=== PATIENT | female | born 1985 | race Caucasian/White ===

== ENCOUNTER → 2018-12-08 | Outpatient (CLI) | payer OTHER | LOC: COL.RAD 10:00 | DX: Z31.41 Encounter for fertility testing (principal) | CPT/HCPCS: Q9967 ==

== ENCOUNTER → 2021-03-30 | Outpatient (CLI) | payer OTHER | LOC: DIA.ED 08:44 | DX: O24.419 Gestational diabetes mellitus in pregnancy, unspecified control (principal) | CPT/HCPCS: G0108 ==

== ENCOUNTER 2021-05-05 10:14 | Inpatient (IN) | payer OTHER ==
[2021-05-05] VITALS (25 sets, daily range): BP systolic 112–144; BP diastolic 64–91; PULSE 75–100; TEMP 97.5–98.2
[~2021-05-05] VITALS: Ht 160 cm; Wt 84.1 kg
--- NOTE | 2021-05-05 10:25 | NUR ---
Presents to labor and delivery. Sent over by the office for monitoring for DEVIN 4 out of nine. heart monitor on. heart rate 140 with accelerations and no decelerations. Denies feeling any contractions.
[2021-05-05] MEDS ORDERED: PRENATAL TABLET PO (11:17)
[2021-05-05] MEDS ORDERED: CALCIUM-500 5001 CTB PO (11:22)
[2021-05-05] MEDS ORDERED: MASON NATURAL2000 IU PO (11:23)
[2021-05-05] MEDS ORDERED: TIROSINT75 MC1 PO (11:25)
[2021-05-05] MEDS ORDERED: NATURAL IRON65 MG (11:25)
--- NOTE | 2021-05-05 14:00 | NUR ---
1400-Assumed care of patient. 1405-Dr. oGldberg to patient room. SVE by MD "closed and 50% effaced" per MD. MD discusses options with patient and gives order to admit and start PO cytotec induction. 1435-INT to right hand, blood collected and sent to lab per orders. Consents reviewed and signed. 1448-cytotec given, see EMAR
--- NOTE | 2021-05-05 14:55 | NUR ---
Presents to ob floor via bed with two surgery nurses. Patient alert, oriented to room. at bedside. Has left mastectomy with keisha drain intact with small amount of red color drainage. Nibp on.
[2021-05-05 16:34] LABS: BASO % 0.2 % (0.0-2.0); EOS # 0.1 K/mm3 (0.0-0.7); EOS % 1.4 % (0.0-4.0); GRAN # 6.7 K/mm3 (1.4-6.5); GRAN % 74.6 % (42.2-75.2); HEMOGLOBIN 12.1 g/dl (12.5-16.0); LYMPH # 1.5 K/mm3 (1.2-3.4); LYMPH % 16.6 % (20.0-51.0); MEAN CELL VOLUME 89 fl (80.0-100.0); MEAN CORPUSCULAR HEMOGLOBIN 30 pg (27-31); MEAN CORPUSCULAR HGB CONC 34 g/dl (33.0-37.0); MEAN PLATELET VOLUME 10.5 fl (7.4-10.4); MONO # 0.6 K/mm3 (0.1-0.6); MONO % 6.6 % (1.7-9.3); PLATELET COUNT 187 K/mm3 (130-400); REDCELL DISTRIBUTION WIDTH-CV 13.5 % (11.5-14.5)
[2021-05-05 16:35] LABS: HEMATOCRIT 35.5 % (37.0-47.0)
[2021-05-06] VITALS (89 sets, daily range): BP systolic 97–159; BP diastolic 52–93; PULSE 64–127; TEMP 97.8–98.4
--- NOTE | 2021-05-06 08:08 | NUR ---
Subtle late decel noted. Pt repositoned right lateral. Ctx tracing intermittenly due to maternal position. RN at bedside adjusting EFM. No further decels noted.
--- NOTE | 2021-05-06 09:10 | NUR ---
PATIENT REMOVED FROM MONITORING AT 0845 FOR AMBULATION AND BRP. PATIENT PLACED ON MONITOR AT 0910. CARE ONGOING.
--- NOTE | 2021-05-06 11:02 | NUR ---
MD MALOU AT BEDSIDE FOR PLAN OF CARE DISCUSSION. ULTRASOUND AT BEDSIDE FOR EXAM. EFM REMOVED FOR US. PATIENT AMBULATING AFTER US COMPLETE. BRP. CARE ONGOING.
--- NOTE | 2021-05-06 12:05 | NUR ---
MD MALOU AT BEDSIDE WELL KAYLEIGH AND RN. CARA REMOVED FOR . CARE ONGOING.
--- NOTE | 2021-05-06 14:18 | NUR ---
PATIENT REMOVED FROM [facility] FOR BRP. CARE ONGOING.
--- NOTE | 2021-05-06 15:30 | NUR ---
PATIENT POSITIONED FOR RIGHT LATERAL SIDE LIE HIP RELEASE. CARE ONGOING.
--- NOTE | 2021-05-06 15:33 | NUR ---
PATIENT POSITIONED FOR LEFT LATERAL SIDE LIE HIP RELEASE. CARE ONGOING.
--- NOTE | 2021-05-06 18:05 | NUR ---
MD MALOU AT BEDSIDE AT 1720. CARE ONGOING.
--- NOTE | 2021-05-06 20:45 | NUR ---
2044-Difficulty tracing ctx due to maternal position.
--- NOTE | 2021-05-06 21:30 | NUR ---
2129-Difficulty tracing ctx due to maternal position. This RN at bedside adjusting TOCO.
[2021-05-07] VITALS (85 sets, daily range): BP systolic 104–1378; BP diastolic 55–97; PULSE 64–117; TEMP 97.3–98.9
--- NOTE | 2021-05-07 02:28 | NUR ---
0228-Patient reports she felt a gush of fluid, not sure if urine or water. This RN to bedside to assess. 0230-Amniotest positive for SROM. Clear fluid noted. SVE -/-2. Patient repositioned to [facility]. Plan of care discussed.
--- NOTE | 2021-05-07 06:40 | NUR ---
Pitocin off at this time.
--- NOTE | 2021-05-07 07:38 | NUR ---
PATIENT OFF MONITOR FOR AMBULATION AND BRP. CARE ONGOING.
--- NOTE | 2021-05-07 07:39 | NUR ---
PATIENT REMOVED FROM [facility] FOR AMBULATION AND BRP. CARE ONGOING.
--- NOTE | 2021-05-07 08:30 | NUR ---
MD MALOU AT BEDSIDE. PATIENT POSITIONED IN BED FOR SVE. SVE PERFORMED BY - /-. PLAN OF CARE DISCUSSED WITH PATIENT AND . CARE ONGOING.
--- NOTE | 2021-05-07 09:02 | NUR ---
MD MALOU AT BEDSIDE. PATIENT POSITIONED IN BED FOR EXAM. SVE COMPLETED BY MD - /-. PLAN OF CARE DISCUSSED WITH PATIENT AND . CARE ONGOING.
--- NOTE | 2021-05-07 10:45 | NUR ---
Patient requesting epidural and plan of care discussed/Questions answered. 1047: [facility] called and notified.
--- NOTE | 2021-05-07 11:15 | NUR ---
PATIENT SITTING UP FOR EPIDURAL. Olivia COLBERT CRNA AT BEDSIDE. 1124 SINGLE SHOT GIVEN. PATIENT TOLERATES WELL. 1130 PATIENT REPOSITIONED. SAFETY INSTRUCTIONS DISCUSSED. CARE ONGOING.
--- NOTE | 2021-05-07 12:08 | NUR ---
MD MALOU AT BEDSIDE. SVE PERFORMED BY - /-. PATIENT TOLERATED EXAM WELL. PLAN OF CARE DISCUSSED WITH PATIENT AND . EPIDURAL AND PITOCIN GTT CONTINUES. SINCLAIR CATHETER PLACED BY RN. CARE ONGOING.
--- NOTE | 2021-05-07 16:35 | NUR ---
MD MALOU AT BEDSIDE. SVE PERFORMED BY . PATIENT /-2. PLAN OF CARE DISCUSSED WITH PATIENT AND . CARE ONGOING.
--- NOTE | 2021-05-07 18:20 | NUR ---
1819- at bedside assessing patient and FHR. SVE /-2. Physician discusses c/s with patient and spouse. Both verbalize understanding and agree with plan. 1825-Pitocin stopped and turned off at this time per physician. Patient's incision area is prepped and cleaned for c/s. Repositioned in bed. Plan of care discussed.
--- NOTE | 2021-05-07 18:26 | NUR ---
MD MALOU AT BEDSIDE FOR EXAM. SVE /-2. PLAN FOR C SECTION DISCUSSED WITH PATIENT AND . PITOCIN GTT STOPPED. CARE ONGOING.
--- NOTE | 2021-05-07 19:02 | NUR ---
1901-Late decel noted on FHR strip. Patient reports feeling nausous and chilly. This RN at bedside assessing. Patient repositioned to LL. 1905- at bedside assessing patient and FHR. Late decel noted on FHR strip. Patient is positioned to RL. SVE per physician, no change. 1909-New IV sited started to LH by VANDANA Brown. IV to RH d/c due to increased puffiness. 1913-Patient reports feeling very cold and nauseous. BP 67/41. Epinephrine given by JENNY Becerril. See EMAR. 1919-Patient's BP has increased back up, 88/51. 1922-BP 148/66. Patient reports she is feeling better, nausea has subsided. LR bolus infusing. 1944-Patient and spouse prepped to go to OR.
[2021-05-08] VITALS: BP 137/75; PULSE 79
--- NOTE | 2021-05-08 | NUR ---
0000 IV TO INT. EPID CATH REMOVED. PERICARE DONE AND PADS CHANGED. BINDER ON. REGULAR DIET TAKEN AND NEAL WELL.
[2021-05-08 02:30] VITALS: BP 124/68; PULSE 98; TEMP 98.6
[2021-05-08 07:50] VITALS: BP 118/62; PULSE 95; TEMP 98.2
[2021-05-08] MEDS ORDERED: PERCOCET 325 MG1 TA2 PO (08:35)
[2021-05-08] MEDS ORDERED: IBU800 M1 PO (08:35)
[2021-05-08 09:05] LABS: HEMOGLOBIN 11.2 g/dl (12.5-16.0); MEAN CELL VOLUME 89 fl (80.0-100.0); MEAN CORPUSCULAR HEMOGLOBIN 30 pg (27-31); MEAN CORPUSCULAR HGB CONC 34 g/dl (33.0-37.0); MEAN PLATELET VOLUME 9.9 fl (7.4-10.4); PLATELET COUNT 171 K/mm3 (130-400); RED BLOOD COUNT 3.68 M/mm3 (4.10-5.30); REDCELL DISTRIBUTION WIDTH-CV 13.7 % (11.5-14.5)
[2021-05-08 09:16] LABS: HEMATOCRIT 32.6 % (37.0-47.0)
[2021-05-08 12:15] VITALS: BP 104/59; PULSE 96; TEMP 98.1
[2021-05-08 16:37] VITALS: BP 98/61; PULSE 96; TEMP 97.6
[2021-05-08 19:15] VITALS: BP 107/71; PULSE 88; TEMP 97.7
[2021-05-09 08:15] VITALS: BP 129/70; PULSE 79; TEMP 97.4
--- NOTE | 2021-05-09 15:20 | NUR ---
1500-Reviewed discharge instructions with patient. Denies questions. Updated on 2 and 6 week appointments. 1520-Ambulatory off unit with spouse and .
== END 2021-05-09 15:20 | disposition home or self-care (01) | DRG 788 ==
LOC: LDRO 10:14 → LDR 10:25 → LDRO 14:21 → LDR 14:22 → OB 14:22
PROVIDERS: Obstetrics & Gynecology; ADMIT Student in an Organized Health Care Education/Training Program
PROC: 10D00Z1 Extraction of Products of Conception, Low, Open Approach (ICD-10-PCS; principal; 2021-05-07)
PROC: 3E0P7VZ Introduction of Hormone into Female Reproductive, Via Natural or Artificial Opening (ICD-10-PCS; 2021-05-07)
PROC: 3E033VJ Introduction of Other Hormone into Peripheral Vein, Percutaneous Approach (ICD-10-PCS; 2021-05-07)
DX: O41.03X0 Oligohydramnios, third trimester, not applicable or unspecified (principal); O24.429 Gestational diabetes mellitus in childbirth, unspecified control; O99.02 Anemia complicating childbirth; D64.9 Anemia, unspecified; O99.284 Endocrine, nutritional and metabolic diseases complicating childbirth; E03.8 Other specified hypothyroidism; O99.214 Obesity complicating childbirth; O61.9 Failed induction of labor, unspecified; Z37.0 Single live birth; Z3A.38 38 weeks gestation of pregnancy
CPT/HCPCS: J0690; J1885; J2175; J2210; J2370; J2400; J2405; J2590; J2795; J7120